=== PATIENT | male | born 1950 | race Caucasian/White ===

== ENCOUNTER 2016-07-25 15:50 | Emergency (ER) | payer OTHER, BC ==
[2016-07-25 16:01] VITALS: BP 148/76; PULSE 76; TEMP 97.9; BMI 33.7
--- NOTE | 2016-07-25 16:47 | PDOC ---
History of Present Illness - General Chief Complaint: Pain Stated Complaint: LT RIB PAIN Time Seen by Provider: 07/25/16 16:16 History Source: Patient - History of Present Illness Occurred: reports: other Pain Location: reports: chest Past History - Past Medical History Allergies/Adverse Reactions: Allergies Allergy/AdvReac Type Severity Reaction Status Date / Time No Known Allergies Allergy Verified 07/25/16 15:57 Home Medications: Ambulatory Orders Allopurinol [Zyloprim] 300 mg PO DAILY #0 tablet 06/14/11 Atorvastatin Ca [Lipitor] 10 mg PO HS #0 tablet 06/14/11 Aspirin [ASA -] 81 mg PO DAILY 09/11/14 Levomefolate/B6/B12/Algal Oil [Metanx Capsule] 1 each PO BID 09/11/14 Lisinopril [Prinivil -] 2.5 mg PO DAILY 09/11/14 Gabapentin [Neurontin] 200 mg PO HS PRN #0 09/22/14 Januvia 50 mg PO BID 10/14/14 Lasix - 40 mg PO DAILY 11/25/14 Potassium 10 meq PO DAILY 11/25/14 CHF: Yes Diabetes: Yes HTN: Yes Hypercholesterolemia: Yes - Surgical History Appendectomy: Yes Orthopedic Surgery: Yes (lt knee) - Immunization History Immunization Up to Date: Yes - Psycho/Social/Smoking Cessation Hx Anxiety: No Suicidal Ideation: No Smoking Status: No Smoking History: Never smoked Have you smoked in the past 12 months: No Number of Cigarettes Smoked Daily: 0 Information on smoking cessation initiated: No 'Breaking Loose' booklet given: 09/12/14 Hx Alcohol Use: No Drug/Substance Use Hx: No Substance Use Type: None Hx Substance Use Treatment: No Review of Systems - Review of Systems Constitutional: No: Chills, Fever Respiratory: No: Cough, Shortness of Breath, Wheezing Cardiac (ROS): No: Lightheadedness, Palpitations ABD/GI: No: Blood Streaked Bowels, Nausea, Vomiting, Abdominal cramping, Tarry Stools *Physical Exam - Vital Signs Last Vital Signs Temp Pulse Resp BP Pulse Ox 97.9 F 76 18 148/76 100 07/25/16 15:58 07/25/16 15:58 07/25/16 15:58 07/25/16 15:58 07/25/16 15:58 - Physical Exam General Appearance: Yes: Appropriately Dressed. No: Apparent Distress HEENT: positive: Normal Voice Neck: positive: Supple Respiratory/Chest: positive: Lungs Clear, Normal Breath Sounds, Other (healing contusion to L lateral mid chest in MAL). negative: Chest Tender, Respiratory Distress Cardiovascular: positive: Regular Rate, S1, S2 Gastrointestinal/Abdominal: positive: Soft. negative: Tender Musculoskeletal: negative: CVA Tenderness Integumentary: positive: Dry, Warm Neurologic: positive: Fully Oriented, Alert, Normal Mood/Affect ED Treatment Course - RADIOLOGY Radiology Studies Ordered: Category Date Time Status RIBS BILATERAL [RAD] Stat Radiology 07/25/16 16:42 Ordered Medical Decision Making - Medical Decision Making 07/25/16 16:42 66 yo M, HTN, HLD, DM, here w/ persistent L chest pain s/p fall 2 and 1/2 weeks ago where he hit L chest against a metal railing. Did not go to the ED. Had bruise to site which has nearly completely resolved. States pain now absent during the days and feels it mostly at nights when he is laying down. No SOB, palpitations, diaphoresis, n/v, excessive belching, change in BM, n/v/f/c See exam L chest wall pain s/p injury >2 weeks ago Site non-tender w/ healing contusion, no crepitus/stepoffs Chest/lungs clear otherwise -Rib series r/o fx pending -Given timing of pain (at nights when supine), unable to r/o GI source, i.e gastritis/GERD. If XR neg for fx, will dc with trial of zantac and PMD f/u 07/25/16 18:14 No fx or other acute pathology on XR. Will dc/ w h2 antagonist trial and pmd f/u 07/25/16 18:26 *DC/Admit/Observation/Transfer Diagnosis at time of Disposition: Chest wall contusion Qualifiers: Encounter type: initial encounter Laterality: left Qualified Code(s): S20.212A - Contusion of left front wall of thorax, initial encounter - Discharge Dispostion Disposition: HOME Condition at time of disposition: Good - Patient Instructions Printed Discharge Instructions: Gastritis Additional Instructions: The cause of your pain is possibly due to your healing contusion. However given that pain is mostly at night, gastritis is a possibility. Take 150 mg zantac over the counter twice a day for the next week and see if your nightly symptoms resolve. It it does resolved, source of pain may be GI, i.e gastritis, etc Please follow up with your PMD
== END 2016-07-25 18:35 | disposition home or self-care (01) ==
LOC: JERFT 15:50
DX: S20.212A Contusion of left front wall of thorax, initial encounter (principal); W01.198A Fall on same level from slipping, tripping and stumbling with subsequent striking against other object, initial encounter; Y93.89 Activity, other specified; Y92.89 Other specified places as the place of occurrence of the external cause; Y99.8 Other external cause status; I10 Essential (primary) hypertension; I50.9 Heart failure, unspecified; E11.9 Type 2 diabetes mellitus without complications; Z79.84 Long term (current) use of oral hypoglycemic drugs; E03.9 Hypothyroidism, unspecified
CPT/HCPCS: 71111-TC; 99281-25

== ENCOUNTER 2017-01-17 19:22 | Emergency (ER) | payer OTHER, BC ==
--- NOTE | 2017-01-17 19:49 | PDOC ---
Rapid Medical Evaluation Chief Complaint: Wound Time Seen by Provider: 01/17/17 19:45 Medical Evaluation: Allergies Allergy/AdvReac Type Severity Reaction Status Date / Time No Known Allergies Allergy Verified 07/25/16 15:57 01/17/17 19:45 I have performed a brief in-person evaluation of this patient. The patient presents with a chief complaint of: Left Foot Ulcer Pertinent physical exam findings: Wound to plantar surface underneath left great toe. I have ordered the following: n/a The patient will proceed to the ED for further evaluation.
[2017-01-17 19:50] VITALS: BP 153/82; PULSE 85; TEMP 98; BMI 33.0
--- NOTE | 2017-01-17 20:28 | PDOC ---
History of Present Illness - General History Source: Patient, Family, Old Records Exam Limitations: No Limitations - History of Present Illness Initial Comments: 01/17/17 20:35 The patient is a 67 year old male, accompanied by , with a past medical history of hypertension (for which he takes aspirin), hyperlipidemia, gout, and diabetes, who presents complaining of left foot discomfort. The patient reports recent history of infected diabetic ulcer that required surgical debridement by Dr. Meng. The patient pain to left foot only complains of discomfort at the medial aspect of left great toe underneath the ball of the foot. The patient denies fever and chills. PMD: Dr. Raiza Loco <Trino Guerrier - Last Filed: 01/17/17 20:41> - General History Source: Patient <Edmundo Arndt - Last Filed: 01/17/17 20:48> - General Chief Complaint: Wound Stated Complaint: LT FOOT PAIN Time Seen by Provider: 01/17/17 19:45 Past History <Trino Guerrier - Last Filed: 01/17/17 20:41> - Past Medical History COPD: No CHF: Yes Diabetes: Yes HTN: Yes Hypercholesterolemia: Yes Other medical history: gout - Surgical History Appendectomy: Yes Orthopedic Surgery: Yes (lt knee) - Immunization History Immunization Up to Date: Yes - Suicide/Smoking/Psychosocial Hx Smoking Status: No Smoking History: Never smoked Have you smoked in the past 12 months: No Number of Cigarettes Smoked Daily: 0 'Breaking Loose' booklet given: 09/12/14 Hx Alcohol Use: No Drug/Substance Use Hx: No Substance Use Type: None Hx Substance Use Treatment: No <Edmundo Arndt - Last Filed: 01/17/17 20:48> - Past Medical History Allergies/Adverse Reactions: Allergies Allergy/AdvReac Type Severity Reaction Status Date / Time No Known Allergies Allergy Verified 01/17/17 19:50 Home Medications: Ambulatory Orders Allopurinol [Zyloprim] 300 mg PO DAILY #0 tablet 06/14/11 Atorvastatin Ca [Lipitor] 10 mg PO HS #0 tablet 06/14/11 Aspirin [ASA -] 81 mg PO DAILY 09/11/14 Levomefolate/B6/B12/Algal Oil [Metanx Capsule] 1 each PO BID 09/11/14 Lisinopril [Prinivil -] 2.5 mg PO DAILY 09/11/14 Gabapentin [Neurontin] 200 mg PO HS PRN #0 09/22/14 Januvia 50 mg PO BID 10/14/14 Lasix - 40 mg PO DAILY 11/25/14 Potassium 10 meq PO DAILY 11/25/14 Levofloxacin [Levaquin -] 500 mg PO DAILY #7 tablet 01/17/17 Review of Systems - Review of Systems Able to Perform ROS?: Yes Comments:: 01/17/17 20:39 CONSTITUTIONAL: Absent: fever, no chills, no fatigue EYES: Absent: visual changes ENT: Absent: ear pain, no sore throat CARDIOVASCULAR: Absent: chest pain, no palpitations RESPIRATORY: Absent: cough, no SOB GI: Absent: abdominal pain, no nausea, no vomiting, no constipation, no diarrhea GENITOURINARY: Absent: dysuria, no frequency, no hematuria MUSCULOSKELETAL: Present: Left great toe discomfort Absent: back pain, no arthralgia, no myalgia SKIN: Absent: rash <Trino Guerrier - Last Filed: 01/17/17 20:41> *Physical Exam - Vital Signs Last Vital Signs Temp Pulse Resp BP Pulse Ox 98 F 85 18 153/82 98 01/17/17 19:44 01/17/17 19:44 01/17/17 19:44 01/17/17 19:44 01/17/17 19:44 - Physical Exam Comments: 01/17/17 20:39 GENERAL: Well-appearing, well-nourished. No apparent distress. HEENT: Normocephalic, atraumatic. PERRL, EOM intact. CARDIOVASCULAR: Normal S1, S2. Regular rate and rhythm. PULMONARY: Clear to auscultation bilaterally. ABDOMEN: Soft, non-distended, non-tender. EXTREMITIES: (+) Left great toe has small blister that is non-tender, no erythema, no pain or tenderness to ball of foot, only a small quarter like callous appearing lesion, no calf tenderness Normal ROM in all four extremities. No gross deformities. SKIN: Warm, dry. No rash NEUROLOGICAL: No focal neurological deficits. <Trino Guerrier - Last Filed: 01/17/17 20:41> - Vital Signs Last Vital Signs Temp Pulse Resp BP Pulse Ox 98 F 85 18 153/82 98 01/17/17 19:44 01/17/17 19:44 01/17/17 19:44 01/17/17 19:44 01/17/17 19:44 <Edmundo Arndt - Last Filed: 01/17/17 20:48> Medical Decision Making - Medical Decision Making 01/17/17 20:43 Dr. Arndt: The scribe's documentation has been prepared under my direction and personally reviewed by me in its entirery. I confirm that the note above accurately reflects all work, treatment, procedures, and medical decision making performed by me. patient with history of left toe, foot ulcer. Concerned that he foot, toe was infected. No sign of infection at this time. No fever or pain/tenderness to foot toe or calf. Pt will be started on Levaquin preventatively. Advised to follow up with Dr. Meng if any problems <Edmundo Arndt - Last Filed: 01/17/17 20:48> *DC/Admit/Observation/Transfer - Attestations Scribe Attestion: 01/17/17 20:39 Documentation prepared by Trino Guerrier, acting as medical library assistant for Edmundo Arndt DO. <Trino Guerrier - Last Filed: 01/17/17 20:41> - Discharge Dispostion Admit: No <Edmundo Arndt - Last Filed: 01/17/17 20:48> Diagnosis at time of Disposition: Toe pain, left Diabetic foot ulcer Qualifiers: Diabetes mellitus type: due to underlying condition Laterality: left - Discharge Dispostion Disposition: HOME Condition at time of disposition: Stable - Prescriptions Prescriptions: Levofloxacin [Levaquin -] 500 mg PO DAILY #7 tablet - Referrals Referrals: Raiza Loco MD [Primary Care Provider] - Glenn Meng MD [Staff Physician] - - Patient Instructions Printed Discharge Instructions: DI for Diabetic Foot Ulcer - Post Discharge Activity
[2017-01-17] MEDS ORDERED: LEVOFLOXACIN 500 MG TABLET (FP) PO ONE (20:31)
[2017-01-17] MEDS ORDERED: LEVOFLOXACIN 500 MG TABLET (FP) ONE (21:12)
== END 2017-01-17 21:51 | disposition home or self-care (01) ==
LOC: JER 19:22
DX: E11.621 Type 2 diabetes mellitus with foot ulcer (principal); Z79.84 Long term (current) use of oral hypoglycemic drugs; I10 Essential (primary) hypertension; I50.9 Heart failure, unspecified; M10.9 Gout, unspecified
CPT/HCPCS: 99281-25

== ENCOUNTER 2017-01-23 17:50 | Emergency (ER) | payer OTHER, BC ==
[2017-01-23 17:57] VITALS: BP 145/84; PULSE 81; TEMP 98; BMI 33.0
--- NOTE | 2017-01-23 17:58 | PDOC ---
Rapid Medical Evaluation Medical Evaluation: Allergies Allergy/AdvReac Type Severity Reaction Status Date / Time No Known Allergies Allergy Verified 01/17/17 19:50 01/23/17 17:52 I have performed a brief in person evaluation of this patient. The patient presents with chief complaint of : left foot diabetic ulcer , states it "looks worse" Pertinent PE findings: left plantar surface with ulcer , no drainage at present approximately 2cm x2cm I have ordered the following: nothing The patient will proceed to the ER for further evaluation.
--- NOTE | 2017-01-23 19:14 | PDOC ---
History of Present Illness - General Chief Complaint: Wound Stated Complaint: LT LEG PAIN Time Seen by Provider: 01/23/17 17:52 - History of Present Illness Initial Comments: 01/23/17 19:17 67-year-old male with a history of NIDDM presents to the emergency department for a wound check to the left plantar surface of the first metatarsal head. Patient states he had a foot ulceration which was treated with Levaquin and wasn 't sure if it looks worse today or not. Patient states he has has an appointment with his vascular surgeon at 11:30 AM tomorrow to examine his foot. Patient denies fever, chills, nausea/vomiting, chest pain, shortness of breath, abdominal pains, extremity numbness or tingling sensation. Past History - Past Medical History Allergies/Adverse Reactions: Allergies Allergy/AdvReac Type Severity Reaction Status Date / Time No Known Allergies Allergy Verified 01/23/17 17:57 Home Medications: Ambulatory Orders Allopurinol [Zyloprim] 300 mg PO DAILY #0 tablet 06/14/11 Atorvastatin Ca [Lipitor] 10 mg PO HS #0 tablet 06/14/11 Aspirin [ASA -] 81 mg PO DAILY 09/11/14 Levomefolate/B6/B12/Algal Oil [Metanx Capsule] 1 each PO BID 09/11/14 Lisinopril [Prinivil -] 2.5 mg PO DAILY 09/11/14 Gabapentin [Neurontin] 200 mg PO HS PRN #0 09/22/14 Januvia 50 mg PO BID 10/14/14 Lasix - 40 mg PO DAILY 11/25/14 Potassium 20 meq PO DAILY 11/25/14 Levofloxacin [Levaquin -] 500 mg PO DAILY #7 tablet 01/17/17 Spironolactone 25 mg PO ASDIR 01/23/17 COPD: No CHF: Yes DVT: No Diabetes: Yes HTN: Yes Hypercholesterolemia: Yes - Surgical History Appendectomy: Yes Orthopedic Surgery: Yes (lt knee) - Immunization History Immunization Up to Date: Yes - Suicide/Smoking/Psychosocial Hx Smoking Status: No Smoking History: Never smoked Have you smoked in the past 12 months: No Number of Cigarettes Smoked Daily: 0 Information on smoking cessation initiated: No 'Breaking Loose' booklet given: 09/12/14 Hx Alcohol Use: No Drug/Substance Use Hx: No Substance Use Type: None Hx Substance Use Treatment: No Review of Systems - Review of Systems Able to Perform ROS?: Yes Comments:: 01/23/17 19:15 CONSTITUTIONAL: Absent: fever, chills, diaphoresis, generalized weakness, malaise, loss of appetite HEENT: Absent: rhinorrhea, nasal congestion, throat pain, throat swelling, difficulty swallowing, mouth swelling, ear pain, eye pain, visual Changes CARDIOVASCULAR: Absent: chest pain, loss of consciousness, palpitations, irregular heart rate, peripheral edema RESPIRATORY: Absent: cough, shortness of breath, dyspnea with exertion, orthopnea, wheezing, stridor, hemoptysis GASTROINTESTINAL: Absent: abdominal pain, abdominal distension, nausea, vomiting, diarrhea, constipation, melena, hematochezia MUSCULOSKELETAL: Absent: myalgia, arthralgia, joint swelling SKIN: Absent: rash, itching, pallor Is the patient limited Portuguese proficient: No *Physical Exam - Vital Signs Last Vital Signs Temp Pulse Resp BP Pulse Ox 98 F 81 18 145/84 97 01/23/17 17:56 01/23/17 17:56 01/23/17 17:56 01/23/17 17:56 01/23/17 17:56 - Physical Exam Comments: 01/23/17 19:15 GENERAL: Well developed, well nourished. Awake and alert. No acute distress. CARDIOVASCULAR: Regular rate and rhythm. No murmurs, rubs, or gallops. Distal pulses are 2+ and symmetric. PULMONARY: No evidence of respiratory distress. Lungs clear to auscultation bilaterally. No wheezing, rales or rhonchi. ABDOMINAL: Soft. Non-tender. Non-distended. No rebound or guarding. No organomegaly. Normoactive bowel sounds. MUSCULOSKELETAL Normal range of motion at all joints. No bony deformities or tenderness. No CVA tenderness. EXTREMITIES: No cyanosis. No clubbing. No edema. No calf tenderness. SKIN: Warm and dry. Normal capillary refill. No rashes. No jaundice. left prox 1st mt plantar surface ~2x2cm healed ulceration neg lymphangitis neg drainage neg pain on palp left foot F.R>O.M. 2 point sensation intact cap refill <2sec 2+pedal pulse *DC/Admit/Observation/Transfer Diagnosis at time of Disposition: Visit for wound check - Discharge Dispostion Disposition: HOME Condition at time of disposition: Stable Admit: No - Referrals Referrals: Raiza Loco MD [Primary Care Provider] - Glenn Meng MD [Staff Physician] - - Patient Instructions Additional Instructions: Please follow up with your vascular surgeon/ DR. Meng tomorrow at 11:30AM SCHEDULED Return to the ER any concerns - Post Discharge Activity
== END 2017-01-23 19:18 | disposition home or self-care (01) ==
LOC: JERFT 17:50
DX: E11.621 Type 2 diabetes mellitus with foot ulcer (principal); I10 Essential (primary) hypertension; E78.00 Pure hypercholesterolemia, unspecified; I50.9 Heart failure, unspecified; Z79.82 Long term (current) use of aspirin
CPT/HCPCS: 99281-25

== ENCOUNTER 2017-05-16 14:35 | Observation (INO) | payer OTHER, BC ==
--- NOTE | 2017-05-16 14:41 | PDOC ---
Rapid Medical Evaluation Time Seen by Provider: 05/16/17 14:37 Medical Evaluation: Allergies Allergy/AdvReac Type Severity Reaction Status Date / Time No Known Allergies Allergy Verified 01/23/17 17:57 05/16/17 14:41 The patient presents with a chief complaint of: Abnormal heart rate, told he has aflutter from Dr. Gallo and was told to present to the ED for anticoagulation, admission and further work up. He believes it started approximately one week ago I have performed a brief in-person evaluation of this patient; Pertinent physical exam findings: ambulatory, in no respiratory distress; currently regular rate and rhythm I have ordered the following: CBC, CMP, Pt/INR, EKG, trop, cxr The patient will proceed to the ED for further evaluation. 05/16/17 14:[address] Dominguez for patient. He is expecting him Discharge Disposition - Referrals Referrals: Raiza Loco MD [Primary Care Provider] - - Patient Instructions - Post Discharge Activity
[2017-05-16 15:11] LABS: BASO % 1.4 % (0-2.0); EOS % 2.4 % (0-4.5); HEMATOCRIT 40.7 % (35.4-49); LYMPH % 17.5 % (8-40); MCH 31.6 pg (25.7-33.7); MCHC 34.3 g/dl (32.0-35.9); MEAN CELL VOLUME 92.1 fl (80-96); MEAN PLT VOLUME 8.4 fl (7.5-11.1); MONO % 5.3 % (3.8-10.2); NEUT % 73.4 % (42.8-82.8); PLATELET COUNT 222 K/MM3 (134-434); RBC 4.42 M/mm3 (4.00-5.60); RDW 14.9 % (11.9-15.9); WHITE BLOOD COUNT 8.9 K/mm3 (4.0-10.0)
[2017-05-16 15:25] LABS: INR 1.01 (0.82-1.09); PROTHROMBIN TIME (PATIENT) 11.4 SEC (9.98-11.88)
--- NOTE | 2017-05-16 15:29 | PDOC ---
History of Present Illness - General Chief Complaint: Palpitations Stated Complaint: ADMIT PER PCP A-FLUTTER Time Seen by Provider: 05/16/17 14:37 - History of Present Illness Initial Comments: 05/16/17 16:00 The patient is a 67 year old male with a history of HTN, HLD, DM, CHF who presents for admission for heart palpitations. The patient reports intermittent episodes of heart palpitations with a sensation of a rapid heart rate over the past few months with he most recent episode 1 week ago. He presented to his maternity nurse Dr. Regalado today who believes the patient is experiencing aflutter and would like the patient admitted for further work up and anticoagulation. The patient reports that he is asymptomatic on exam here in the ED and otherwise denies fevers, chills, SOB, chest pain, nausea, vomiting , abdominal pain, or changes with urination or bowel movements. Past History - Past Medical History Allergies/Adverse Reactions: Allergies Allergy/AdvReac Type Severity Reaction Status Date / Time No Known Allergies Allergy Verified 05/16/17 14:45 Home Medications: Ambulatory Orders Allopurinol [Zyloprim] 300 mg PO DAILY #0 tablet 06/14/11 Atorvastatin Ca [Lipitor] 10 mg PO HS #0 tablet 06/14/11 Lisinopril [Prinivil -] 5 mg PO DAILY 09/11/14 Gabapentin [Neurontin] 200 mg PO HS PRN #0 09/22/14 Januvia 50 mg PO BID 10/14/14 Lasix - 20 mg PO DAILY 11/25/14 Potassium 20 meq PO DAILY 11/25/14 Spironolactone 25 mg PO DAILY 01/23/17 Ascorbate Calcium [Vitamin C] 500 mg PO DAILY 05/16/17 Aspirin [ASA -] 81 mg PO DAILY 05/16/17 Multivitamin [One Daily] 1 each PO DAILY 05/16/17 Zinc Sulfate 220 mg PO DAILY 05/16/17 COPD: No CHF: Yes DVT: No Diabetes: Yes HTN: Yes Hypercholesterolemia: Yes - Surgical History Appendectomy: Yes Orthopedic Surgery: Yes (lt knee) - Immunization History Immunization Up to Date: Yes - Suicide/Smoking/Psychosocial Hx Smoking Status: No Smoking History: Never smoked Have you smoked in the past 12 months: No Number of Cigarettes Smoked Daily: 0 Information on smoking cessation initiated: No 'Breaking Loose' booklet given: 09/12/14 Hx Alcohol Use: No Drug/Substance Use Hx: No Substance Use Type: None Hx Substance Use Treatment: No Review of Systems - Review of Systems Comments:: 05/16/17 16:04 Constitutional: No fevers, chills, fatigue, malaise HEENT: No Rhinorrhea, nasal congestion, visual changes Cardiovascular: Palpitations. No chest pain, syncope, lightheadedness Respiratory: No Cough, SOB, Hemoptysis, Gastrointestinal: No Abdominal pain, Nausea, Vomiting, Constipation, Diarrhea, Melena Genitourinary: No Dysuria, Frequency, Urgency, Hesitancy, Hematuria, Flank pain Musculoskeletal: No Myalgia, arthralgia Skin: No rashes, itching, bruising, pallor Neurologic: No Headache, Dizziness, Numbness, Weakness, or Tingling Psychiatric: No Hallucinations. No SI or HI *Physical Exam - Vital Signs Last Vital Signs Temp Pulse Resp BP Pulse Ox 97.4 F L 82 19 143/76 99 05/16/17 14:42 05/16/17 14:42 05/16/17 14:42 05/16/17 14:42 05/16/17 14:42 - Physical Exam Comments: 05/16/17 16:04 General Appearance: Nourished. No Apparent Distress HEENT: EOMI, OREN. No Pharyngeal Erythema, Tonsillar Exudate, Tonsillar Erythema Neck: No Cervical Lymphadenopathy Respiratory/Chest: Lungs Clear, Normal Breath Sounds. No Crackles, Rales, Rhonchi, Wheezing Cardiovascular: Regular Rhythm, Regular Rate. No Murmur, Gallops, Rubs Gastrointestinal/Abdominal: Normal Bowel Sounds, Soft. No Guarding, Rebound, Tenderness Musculoskeletal: No CVA Tenderness Extremity: Normal Capillary Refill Integumentary: Normal Color, Dry, Warm Neurologic: Fully Oriented, Alert, Normal Mood/Affect, Normal Response, Heart Score/ECG Review #1 ECG reviewed & interpreted by me at: 16:05 (Left [place] Devation with a Prolonged QT interval) General ECG Interpretation: Sinus Rhythm, Normal Rate, Normal Intervals, No acute ischemic changes ED Treatment Course - LABORATORY CBC & Chemistry Diagram: 05/16/17 15:02 05/16/17 15:02 - ADDITIONAL ORDERS Additional order review: 05/16/17 15:02 RBC 4.42 MCV 92.1 MCHC 34.3 RDW 14.9 MPV 8.4 Neutrophils % 73.4 Lymphocytes % 17.5 D Monocytes % 5.3 Eosinophils % 2.4 Basophils % 1.4 Medical Decision Making - Medical Decision Making 05/16/17 16:05 The patient is a 67 year old male with a history of HTN, HLD, DM, CHF who presents for admission for heart palpitations. Given the patient's history, we will obtain a cbc, cmp, troponin, ekg, coags, and chest plain film to evaluate further. We discussed the case with Dr. Walsh who would like the patient placed on a heparin drip and placed on coreg 6.25mg BID and agrees with admission for further work up. We will start the patient on coreg and a heparin drip here in the ED and continue to monitor and reassess. 05/16/17 18:14 cbc, cmp, troponin are unremarkable. We discussed the case with the hospitalist team who accepted the patient for admission. *DC/Admit/Observation/Transfer Diagnosis at time of Disposition: Palpitations - Discharge Dispostion Condition at time of disposition: Stable Admit: Yes - Referrals Referrals: Raiza Loco MD [Primary Care Provider] - - Patient Instructions - Post Discharge Activity
[2017-05-16 15:46] LABS: ALBUMIN 4.3 g/dl (3.4-5.0); ALK PHOS 95 U/L (45-117); ANION GAP 13 (8-16); BILIRUBIN,TOTAL 0.8 mg/dL (0.2-1.0); BLOOD UREA NITROGEN 35 mg/dL (7-18); CALCIUM 9.1 mg/dL (8.5-10.1); CHLORIDE 101 mmol/L (98-107); CO2 25 mmol/L (21-32); CREATININE 1.5 mg/dL (0.7-1.3); GLUCOSE,RANDOM 137 mg/dL (74-106); POTASSIUM 3.4 mmol/L (3.5-5.1); SGOT/AST 14 U/L (15-37); SGPT/ALT 20 U/L (12-78); SODIUM 139 mmol/L (136-145); TOT PROT 7.4 g/dl (6.4-8.2)
[2017-05-16] MEDS ORDERED: HEPARIN NA (PORCINE) 5,000 UNITS/ML 1ML VIAL IVPUSH PRN ×2 (15:54)
[2017-05-16] MEDS ORDERED: HEPARIN - 25,000 UNIT in SODIUM CHLORIDE 495 ML IV SCH (16:00)
--- NOTE | 2017-05-16 16:25 | EKG ---
Test Reason : Blood Pressure : / mmHG Vent. Rate : 077 BPM Atrial Rate : 077 BPM P-R Int : 166 ms QRS Dur : 090 ms QT Int : 430 ms P-R-T Axes : 073 -30 003 degrees QTc Int : 486 ms SINUS RHYTHM WITH OCCASIONAL PREMATURE VENTRICULAR COMPLEXES LEFT AXIS DEVIATION NONSPECIFIC ST AND T WAVE ABNORMALITY PROLONGED QT ABNORMAL ECG WHEN COMPARED WITH ECG OF 29-JAN-2015 12:50, PREMATURE VENTRICULAR COMPLEXES ARE NOW PRESENT PREMATURE SUPRAVENTRICULAR COMPLEXES ARE NO LONGER PRESENT NONSPECIFIC T WAVE ABNORMALITY, WORSE IN INFERIOR LEADS Confirmed by Denilson Sylvester ([id number]) on 05/16/2017 4:25:19 PM Referred By: Confirmed By:Denilson Sylvester
--- NOTE | 2017-05-16 16:27 | PDOC ---
Attending Attestation - Resident Resident Name: Rigo Brandon - ED Attending Attestation I have performed the following: I have examined & evaluated the patient, The case was reviewed & discussed with the resident, I agree w/resident's findings & plan, Exceptions are as noted - HPI HPI: 05/16/17 16:24 67y/o HTN, DM with chronic foot wounds sent from cardiology after diagnosed with a flutter in the setting of intermittent palpitations/tachycardia. no cp, no complaints at this time. - Physicial Exam PE: 05/16/17 16:25 Vital signs normal, afebrile, heart rate regular Well-appearing, heart is regular without murmurs, occasional premature beat - Medical Decision Making 05/16/17 16:26 Patient seen and evaluated with the resident. I agree with the overall evaluation, assessment, and management with the following summary of visit: 67-year-old male diagnosed with atrial flutter as outpatient, asymptomatic at this time. Discussed with Dr. Walsh, plan is for admission for cardiac monitoring and anticoagulation EKG today is sinus with normal rate, single PVC noted admit Heart Score/ECG Review #1 ECG reviewed & interpreted by me at: 14:52 General ECG Interpretation: Sinus Rhythm (with single PVC noted), Normal Rate ( 77), Normal Intervals, No acute ischemic changes
--- NOTE | 2017-05-16 17:52 | HP ---
Admitting History and Physical - Primary Care Physician PCP: Raiza Loco - Admission Chief Complaint: sent from cardiology office History of Present Illness: This is a 67 year old male with pmhx of DM II, HTN, HLD, CHF diabetic foot ulcer s.p MRSA who presented to the ED after cardiology outpt eval of ECHO and EKG noting A flutter. Pt denies over palpitations, intermittently at night he will sob or find himself catching his breath. Per ED record he reported having intermitted sensations of rapid heart rate. Recently, seen by Dr. Meng noted an elevated HR towards the end of last year. Currently, pt is without palpitations, cp, sob, abd pain, walker, dizziness. 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 History Source: Patient Limitations to Obtaining History: No Limitations - Past Medical History Cardiovascular: Yes: CHF, HTN, Hyperlipdemia Endocrine: Yes: Diabetes Mellitus - Past Surgical History Additional Past Surgical History: Left toe surgery d/t MRSA - Smoking History Smoking history: Never smoked Have you smoked in the past 12 months: No Aproximately how many cigarettes per day: 0 - Alcohol/Substance Use Hx Alcohol Use: No History of Substance Use: reports: None - Social History Usual Living Arrangement: Yes: Alone ADL: Independent Occupation: pharmacist Home Medications - Allergies Allergies/Adverse Reactions: Allergies Allergy/AdvReac Type Severity Reaction Status Date / Time No Known Allergies Allergy Verified 05/16/17 14:45 - Home Medications Home Medications: Ambulatory Orders Allopurinol [Zyloprim] 300 mg PO DAILY #0 tablet 06/14/11 Atorvastatin Ca [Lipitor] 10 mg PO HS #0 tablet 06/14/11 Lisinopril [Prinivil -] 5 mg PO DAILY 09/11/14 Gabapentin [Neurontin] 200 mg PO HS PRN #0 09/22/14 Januvia 50 mg PO BID 10/14/14 Lasix - 20 mg PO DAILY 11/25/14 Potassium 20 meq PO DAILY 11/25/14 Spironolactone 25 mg PO DAILY 01/23/17 Ascorbate Calcium [Vitamin C] 500 mg PO DAILY 05/16/17 Aspirin [ASA -] 81 mg PO DAILY 05/16/17 Multivitamin [One Daily] 1 each PO DAILY 05/16/17 Zinc Sulfate 220 mg PO DAILY 05/16/17 Review of Systems - Review of Systems Constitutional: reports: No Symptoms Eyes: reports: No Symptoms HENT: reports: No Symptoms Neck: reports: No Symptoms Cardiovascular: reports: Palpitations, Shortness of Breath Respiratory: reports: SOB Gastrointestinal: reports: No Symptoms Genitourinary: reports: No Symptoms Musculoskeletal: reports: No Symptoms Integumentary: reports: No Symptoms Neurological: reports: No Symptoms Endocrine: reports: No Symptoms Hematology/Lymphatic: reports: No Symptoms Psychiatric: reports: No Symptoms Physical Examination Vital Signs: Vital Signs Temperature 97.4 F L 05/16/17 14:42 Pulse Rate 82 05/16/17 14:42 Respiratory Rate 19 05/16/17 14:42 Blood Pressure 143/76 05/16/17 14:42 O2 Sat by Pulse Oximetry (%) 99 05/16/17 14:42 Constitutional: Yes: No Distress Eyes: Yes: Conjunctiva Clear HENT: Yes: Atraumatic Cardiovascular: Yes: Pulse Irregular, S1, S2 Respiratory: Yes: Regular, CTA Bilaterally Gastrointestinal: Yes: Normal Bowel Sounds, Soft Renal/: Yes: WNL Musculoskeletal: Yes: WNL Edema: Yes Edema: RLE: 1+ Peripheral Pulses WNL: Yes Wound/Incision: Yes: Dressing Dry and Intact, Other (L foot, pt reports is healing, he changes it everday) Neurological: Yes: Alert, Oriented, Cran Nerves II-XII Intact Labs: CBC, BMP 05/16/17 15:02 05/16/17 15:02 Imaging - Results Chest X-ray: Report Reviewed, Image Reviewed EKG: Report Reviewed, Image Reviewed Problem List - Problems (1) Atrial flutter Code(s): I48.92 - UNSPECIFIED ATRIAL FLUTTER (2) Palpitations Code(s): R00.2 - PALPITATIONS (3) Diabetes Code(s): E11.9 - TYPE 2 DIABETES MELLITUS WITHOUT COMPLICATIONS (4) Diabetic foot ulcer Code(s): E11.621 - TYPE 2 DIABETES MELLITUS WITH FOOT ULCER; L97.509 - NON- PRESSURE CHRONIC ULCER OTH PRT UNSP FOOT W UNSP SEVERITY Qualifiers: Diabetes mellitus type: due to underlying condition Laterality: left Assessment/Plan Assessment: 67 year old male with htn, dm II, hld, chf, admitted with new onset a flutter Plan: 1. New onset a flutter - Tele monitoring - Stop verapamil - Start coreg 6.25, ECHO shows degree of failure - Start eliquis 5mg BID - Check lipids, tsh, hgb a1c - Cardiology seeing 2. SUNNY on CKD - Cr baseline 1.3 - Hold Lasix, januvia, chlorthalidone - Give gentle fluids - BMP in AM 3. DM II - Hold po meds - start ISS, BGM ACHS 4. CHF - Not in exacerbation - Likely systolic failure - Hold diuretics pending renal recovery 5. HLD - Statin 6. Foot ulcer - hx of mrsa - Daily dressing changes 7. DVT - On AC Visit type - Emergency Visit Emergency Visit: Yes Care time: The patient presented to the Emergency Department on the above date and was hospitalized for further evaluation of their emergent condition. - New Patient This patient is new to me today: Yes Date on this admission: 05/16/17 - Critical Care Critical Care patient: No Hospitalist Screening - Colonoscopy Questionnaire Colonoscopy Questionnaire: Colonoscopy Questionnaire - Patient: 50 - 75 years old and never had a screening colonoscopy: No History of colon or rectal polyps, or CA: Unknown History of IBD, Crohn's disease or UC: Unknown History of abdominal radiation therapy as a child: Unknown - Relative: 1 with colon or rectal CA, or polyps at age 60 or younger: Unknown Colon or rectal CA diagnosed at age 45 or younger: Unknown Multiple relatives with colon or rectal CA: Unknown - Outcome: Screening Result: Negative Screen
[2017-05-16] MEDS ORDERED: POTASSIUM CHLORIDE ORAL LIQUID 20 MEQ/15 ML PO ONE (18:04)
[2017-05-16] MEDS ORDERED: SODIUM CHLORIDE 1,000 ML IV SCH (18:15)
[2017-05-16] MEDS ORDERED: POTASSIUM CHLORIDE TABS 20 MEQ TABLET.ER (FP) PO ONE (18:40)
[2017-05-16] MEDS ORDERED: HEMOQUE TEST 1 EACH EACH ONE (20:22)
[2017-05-16] MEDS: APIXABAN 5 MG TABLET PO SCH ×2 (20:29→22:07)
[2017-05-16] MEDS ORDERED: INSULIN (NOVOLOG) ASPART 100 UNITS/ML 10ML VIAL ONE (21:36)
[2017-05-16] MEDS: INSULIN SLIDING SCALE (NOVOLOG) 1 VIAL SQ SCH (21:47)
[2017-05-16] MEDS ORDERED: ATORVASTATIN CA 10 MG TABLET (FP) PO SCH (22:00)
[2017-05-16] MEDS: CARVEDILOL 6.25 MG TABLET (FP) PO SCH (22:08)
[2017-05-17] MEDS: INSULIN SLIDING SCALE (NOVOLOG) 1 VIAL SQ SCH ×2 (06:21→11:51)
[2017-05-17 07:03] VITALS: TEMP 98.3
[2017-05-17 07:55] VITALS: PULSE 70
[2017-05-17 07:57] LABS: HEMATOCRIT 35.9 % (35.4-49); HEMOGLOBIN 12.3 GM/dL (11.7-16.9); MCH 31.4 pg (25.7-33.7); MCHC 34.3 g/dl (32.0-35.9); MEAN CELL VOLUME 91.6 fl (80-96); MEAN PLT VOLUME 8.7 fl (7.5-11.1); PLATELET COUNT 201 K/MM3 (134-434); RBC 3.92 M/mm3 (4.00-5.60); RDW 15.3 % (11.9-15.9); WHITE BLOOD COUNT 9.3 K/mm3 (4.0-10.0)
[2017-05-17 08:15] LABS: CHLORIDE 104 mmol/L (98-107); POTASSIUM 3.7 mmol/L (3.5-5.1); SODIUM 139 mmol/L (136-145)
[2017-05-17 08:26] LABS: ANION GAP 12 (8-16); BLOOD UREA NITROGEN 33 mg/dL (7-18); CALCIUM 8.6 mg/dL (8.5-10.1); CO2 23 mmol/L (21-32); CREATININE 1.2 mg/dL (0.7-1.3); GLUCOSE,RANDOM 125 mg/dL (74-106); MAGNESIUM 2.4 mg/dL (1.8-2.4); PHOSPHOROUS 3.3 mg/dL (2.5-4.9)
[2017-05-17 09:09] LABS: CHOLESTEROL 186 mg/dL (50-200); HDL CHOLESTEROL 35 mg/dL (40-60); LDL CHOLESTEROL (ONLY SJRH) 128 mg/dL (5-100); TRIGLYCERIDES 190 mg/dL (35-160)
[2017-05-17] MEDS ORDERED: ZINC SULFATE 220 MG CAPSULE (FP) PO SCH (10:00)
[2017-05-17] MEDS ORDERED: MULTIVITAMINS (DAILY MVI) TABLET (FP) PO SCH (10:00)
[2017-05-17] MEDS ORDERED: SPIRONOLACTONE 25 MG TABLET (FP) PO SCH (10:00)
[2017-05-17] MEDS: CARVEDILOL 6.25 MG TABLET (FP) PO SCH (11:25)
[2017-05-17] MEDS: APIXABAN 5 MG TABLET PO SCH (11:25)
--- NOTE | 2017-05-17 11:33 | PN ---
Progress Note, Physician Chief Complaint: Pt OOB in chair; did not sleep last night (uncomfortable bed, and noisy in ER) .. No palpitations, chest pain, or SOB; no PND. 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 Gallo and was told to present to the ED for anticoagulation, admission and further work up. He believes it started approximately one week ago I have performed a brief in-person evaluation of this patient; Pertinent physical exam findings: ambulatory, in no respiratory distress; currently regular rate and rhythm I have ordered the following: CBC, CMP, Pt/INR, EKG, trop, cxr The patient will proceed to the ED for further evaluation. 05/16/17 14:46 Collar Separator: Dr. Walsh PMD: Dr. Raiza Loco - Current Medication List Current Medications: Active Medications Apixaban (Eliquis -) 5 mg PO BID [facility] Last Admin: 05/17/17 11:25 Dose: 5 mg Atorvastatin Calcium (Lipitor -) 10 mg PO HS [facility] Last Admin: 05/16/17 21:47 Dose: 10 mg Carvedilol (Coreg -) 6.25 mg PO BID [facility] Last Admin: 05/17/17 11:25 Dose: 6.25 mg Sodium Chloride (Normal Saline -) 1,000 mls @ 50 mls/hr IV ASDIR [facility] Stop: 05/17/17 18:01 Last Admin: 05/16/17 18:03 Dose: 50 mls/hr Insulin Aspart (Novolog Vial Sliding Scale -) 0 vial SQ ACHS [facility] PRN Reason: Protocol Last Admin: 05/17/17 06:21 Dose: Not Given Multivitamins/Minerals/Vitamin C (Tab-A-Vit -) 1 tab PO DAILY [facility] Last Admin: 05/17/17 11:25 Dose: 1 tab Spironolactone (Aldactone -) 25 mg PO DAILY [facility] Last Admin: 05/17/17 11:25 Dose: 25 mg Zinc Sulfate (Orazinc -) 220 mg PO DAILY [facility] Last Admin: 05/17/17 11:25 Dose: 220 mg - Objective Vital Signs: Vital Signs Temperature 98.3 F 05/17/17 06:00 Pulse Rate 70 05/17/17 07:55 Respiratory Rate 18 05/17/17 07:55 Blood Pressure 119/73 05/17/17 07:55 O2 Sat by Pulse Oximetry (%) 98 05/17/17 07:55 Labs: CBC, BMP 05/17/17 06:30 05/17/17 06:30 INR, PTT INR 1.01 (0.82-1.09) 05/16/17 15:02 Problem List - Problems (1) Atrial flutter Assessment/Plan: Now in sinus rhythm. Verapamil stopped (mildly reduced LVEF on ECHO yesterday). Started carvedilol 6.25 mg bid. Diuretics (chlorthalidone and furosemide) d/sharron (elevated BUN/Cr improving overnight) Code(s): I48.92 - UNSPECIFIED ATRIAL FLUTTER (2) Palpitations Code(s): R00.2 - PALPITATIONS (3) Diabetes Code(s): E11.9 - TYPE 2 DIABETES MELLITUS WITHOUT COMPLICATIONS (4) Foot swelling Code(s): M79.89 - OTHER SPECIFIED SOFT TISSUE DISORDERS (5) Osteomyelitis due to type 2 diabetes mellitus Code(s): E11.69 - TYPE 2 DIABETES MELLITUS WITH OTHER SPECIFIED COMPLICATION; M86.9 - OSTEOMYELITIS, UNSPECIFIED (6) Toe pain, left Code(s): M79.675 - PAIN IN LEFT TOE(S) (7) Visit for wound check Code(s): Z51.89 - ENCOUNTER FOR OTHER SPECIFIED AFTERCARE (8) Peripheral arterial disease Assessment/Plan: f/u vascular studies as outpt. Code(s): I73.9 - PERIPHERAL VASCULAR DISEASE, UNSPECIFIED (9) [place] cardiac risk >20% in next 10 years Assessment/Plan: F/u coronary artery evaluation as outpatient. Code(s): Z91.89 - OTH PERSONAL RISK FACTORS, NOT ELSEWHERE CLASSIFIED
--- NOTE | 2017-05-17 11:41 | DS ---
Physical Exam: SUBJECTIVE: Patient seen and examined OBJECTIVE: Vital Signs Period Temp Pulse Resp BP Sys/Muñiz Pulse Ox Last 24 Hr 97.4 F-98.4 F 67-84 16-19 114-143/67-79 98-99 PHYSICAL EXAM GENERAL: The patient is awake, alert, and fully oriented, in no acute distress. HEAD: Normal with no signs of trauma. EYES: PERRL, extraocular movements intact, sclera anicteric, conjunctiva clear. ENT: Ears normal, nares patent, oropharynx clear without exudates, moist mucous membranes. NECK: Trachea midline, full range of motion, supple. LUNGS: Breath sounds equal, clear to auscultation bilaterally, no wheezes, no crackles, no accessory muscle use. HEART: Regular rate and rhythm, S1, S2 without murmur, rub or gallop. ABDOMEN: Soft, nontender, nondistended, normoactive bowel sounds, no guarding, no rebound, no hepatosplenomegaly, no masses. EXTREMITIES: 2+ pulses, warm, well-perfused, no edema. NEUROLOGICAL: Cranial nerves II through XII grossly intact. Normal speech, gait not observed. PSYCH: Normal mood, normal affect. SKIN: Warm, dry, normal turgor, no rashes or lesions noted. LABS Laboratory Results - last 24 hr 05/16/17 05/16/17 05/16/17 14:50 15:02 15:02 WBC 8.9 RBC 4.42 Hgb 14.0 Hct 40.7 MCV 92.1 MCH 31.6 MCHC 34.3 RDW 14.9 Plt Count 222 MPV 8.4 Neutrophils % 73.4 Lymphocytes % 17.5 D Monocytes % 5.3 Eosinophils % 2.4 Basophils % 1.4 PT with INR 11.40 INR 1.01 Sodium Potassium Chloride Carbon Dioxide Anion Gap BUN Creatinine Creat Clearance w eGFR POC Glucometer Random Glucose Calcium Phosphorus Magnesium Total Bilirubin AST ALT Alkaline Phosphatase Creatine Kinase 86 Troponin I < 0.02 Total Protein Albumin Triglycerides Cholesterol Total LDL Cholesterol HDL Cholesterol TSH 05/16/17 05/16/17 05/17/17 15:02 20:27 06:05 WBC RBC Hgb Hct MCV MCH MCHC RDW Plt Count MPV Neutrophils % Lymphocytes % Monocytes % Eosinophils % Basophils % PT with INR INR Sodium 139 Potassium 3.4 L Chloride 101 Carbon Dioxide 25 Anion Gap 13 BUN 35 H Creatinine 1.5 H Creat Clearance w eGFR 46.40 POC Glucometer [id number] 128 Random Glucose 137 H D Calcium 9.1 Phosphorus Magnesium Total Bilirubin 0.8 AST 14 L D ALT 20 D Alkaline Phosphatase 95 Creatine Kinase Troponin I Total Protein 7.4 Albumin 4.3 Triglycerides Cholesterol Total LDL Cholesterol HDL Cholesterol TSH 05/17/17 05/17/17 05/17/17 06:30 06:30 06:30 WBC 9.3 RBC 3.92 L Hgb 12.3 D Hct 35.9 MCV 91.6 MCH 31.4 MCHC 34.3 RDW 15.3 Plt Count 201 MPV 8.7 Neutrophils % Lymphocytes % Monocytes % Eosinophils % Basophils % PT with INR INR Sodium 139 Potassium 3.7 Chloride 104 Carbon Dioxide 23 Anion Gap 12 BUN 33 H Creatinine 1.2 Creat Clearance w eGFR POC Glucometer Random Glucose 125 H Calcium 8.6 Phosphorus 3.3 Magnesium 2.4 Total Bilirubin AST ALT Alkaline Phosphatase Creatine Kinase Troponin I Total Protein Albumin Triglycerides 190 H Cancelled Cholesterol 186 Cancelled Total LDL Cholesterol 128 H Cancelled HDL Cholesterol 35 L D Cancelled TSH 1.45 D Cancelled HOSPITAL COURSE: Date of Admission:05/16/17 Date of Discharge: 05/17/17 Discharge Summary Reason For Visit: PALPITATIONS Current Active Problems Atrial flutter (Acute) Palpitations (Acute) Condition: Stable - Instructions Diet, Activity, Other Instructions: Please return to the ED for any new, persistent, or worsening symptoms. Follow up with your PCP in 1 week Take new and regularly scheduled meds as directed on discharge med list Follow up with cardiology in 2 weeks Take lasix 20mg as needed for lower leg swelling, not scheduled, if you find yourself using it daily call Dr. Walsh and see him in the office Referrals: Raiza Loco MD [Primary Care Provider] - Garett Walsh MD [Staff Physician] - Disposition: HOME - Home Medications Comprehensive Discharge Medication List: Ambulatory Orders Allopurinol [Zyloprim] 300 mg PO DAILY #0 tablet 06/14/11 Lisinopril [Prinivil -] 5 mg PO DAILY 09/11/14 Gabapentin [Neurontin] 200 mg PO HS PRN #0 09/22/14 Januvia 50 mg PO BID 10/14/14 Ascorbate Calcium [Vitamin C] 500 mg PO DAILY 05/16/17 Multivitamin [One Daily] 1 each PO DAILY 05/16/17 Zinc Sulfate 220 mg PO DAILY 05/16/17 Apixaban [Eliquis -] 5 mg PO BID #60 tablet 05/17/17 Atorvastatin Ca [Lipitor] 40 mg PO HS #30 tablet 05/17/17 Carvedilol [Coreg -] 6.25 mg PO BID #60 tablet 05/17/17 Furosemide [Lasix -] 20 mg PO DAILY PRN #30 tablet 05/17/17 Problem List - Problems (1) Atrial flutter Code(s): I48.92 - UNSPECIFIED ATRIAL FLUTTER (2) Palpitations Code(s): R00.2 - PALPITATIONS (3) Diabetes Code(s): E11.9 - TYPE 2 DIABETES MELLITUS WITHOUT COMPLICATIONS (4) Diabetic foot ulcer Code(s): E11.621 - TYPE 2 DIABETES MELLITUS WITH FOOT ULCER; L97.509 - NON- PRESSURE CHRONIC ULCER OTH PRT UNSP FOOT W UNSP SEVERITY Qualifiers: Diabetes mellitus type: due to underlying condition Laterality: left
--- NOTE | 2017-05-17 11:55 | EKG ---
Test Reason : Blood Pressure : / mmHG Vent. Rate : 075 BPM Atrial Rate : 075 BPM P-R Int : 170 ms QRS Dur : 100 ms QT Int : 466 ms P-R-T Axes : 077 -28 -34 degrees QTc Int : 520 ms NORMAL SINUS RHYTHM NONSPECIFIC ST AND T WAVE ABNORMALITY PROLONGED QT ABNORMAL ECG WHEN COMPARED WITH ECG OF 16-MAY-2017 14:52, PREMATURE VENTRICULAR COMPLEXES ARE NO LONGER PRESENT NONSPECIFIC T WAVE ABNORMALITY NOW EVIDENT IN ANTEROLATERAL LEADS Confirmed by JAE GARCIA MD ([id number]) on 05/17/2017 11:55:15 AM Referred By: ELIZABETH WERNER Confirmed By:JAE GARCIA MD
[2017-05-17 12:11] VITALS: BP 114/72
== END 2017-05-17 12:56 | disposition home or self-care (01) ==
LOC: JER 14:35 → JERBED 17:39
PROVIDERS: ADMIT Internal Medicine; ATTEND Nurse Practitioner Acute Care
PROC: 3E033GC Introduction of Other Therapeutic Substance into Peripheral Vein, Percutaneous Approach (ICD-10-PCS; principal; 2017-05-16)
PROC: 3E0337Z Introduction of Electrolytic and Water Balance Substance into Peripheral Vein, Percutaneous Approach (ICD-10-PCS; 2017-05-16)
DX: I48.92 Unspecified atrial flutter (principal); R00.2 Palpitations; I10 Essential (primary) hypertension; E78.5 Hyperlipidemia, unspecified; I50.9 Heart failure, unspecified; I73.9 Peripheral vascular disease, unspecified; E11.69 Type 2 diabetes mellitus with other specified complication; E11.621 Type 2 diabetes mellitus with foot ulcer; L97.509 Non-pressure chronic ulcer of other part of unspecified foot with unspecified severity; M79.89 Other specified soft tissue disorders; M86.9 Osteomyelitis, unspecified; M79.675 Pain in left toe(s); Z91.89 Other specified personal risk factors, not elsewhere classified; Z79.82 Long term (current) use of aspirin
CPT/HCPCS: 36415; 71046-TC-FY; 80048; 80053; 80061; 82550; 82962; 83036; 83721; 83735; 84100; 84443; 84484; 85025; 85027; 85610; 93005; 93010; 96360; 96361; 99285-25; G0378; J7030

== ENCOUNTER 2017-11-19 23:21 | Emergency (ER) | payer OTHER, BC ==
[2017-11-19 23:44] VITALS: BP 151/79; PULSE 87; TEMP 98.2; BMI 33.0
--- NOTE | 2017-11-20 00:36 | PDOC ---
History of Present Illness - General History Source: Patient Exam Limitations: No Limitations - History of Present Illness Initial Comments: 11/20/17 00:47 The patient is a 67 year old male with a past medical history of A-flutter, type 2 diabetes, hypertension, osteomyelitis, chronic foot wounds, and pedal edema (on demadex) who presents to the emergency department for evaluation of left lower extremity edema. The patient reports visiting the emergency department for further evaluation after noticing swelling on his left leg and left foot. Patient sees Dr. Meng at the wound care clinic and has an appointment next week. The patient denies chest pain, shortness of breath, cough, headache, and dizziness. Denies fevers, chills, nausea, vomiting, and any bowel/urinary symptoms. Allergies: NKDA Social History: No reported alcohol, cigarette, or drug use. PCP: Dr. Raiza Loco <Kaylee Hylton - Last Filed: 11/20/17 00:47> <Jeni Lyn - Last Filed: 11/20/17 01:47> - General Chief Complaint: Edema Stated Complaint: SWOLLEN LEFT FOOT Time Seen by Provider: 11/20/17 00:24 Past History <Kaylee Hylton - Last Filed: 11/20/17 00:47> - Past Medical History COPD: No CHF: Yes DVT: No Diabetes: Yes HTN: Yes Hypercholesterolemia: Yes - Surgical History Appendectomy: Yes Orthopedic Surgery: Yes (lt knee) - Immunization History Immunization Up to Date: Yes - Suicide/Smoking/Psychosocial Hx Smoking Status: No Smoking History: Former smoker Have you smoked in the past 12 months: No Number of Cigarettes Smoked Daily: 0 If you are a former smoker, when did you quit?: 1979 Information on smoking cessation initiated: No 'Breaking Loose' booklet given: 09/12/14 Hx Alcohol Use: Yes Drug/Substance Use Hx: No Substance Use Type: None Hx Substance Use Treatment: No <Jeni Lyn - Last Filed: 11/20/17 01:47> - Past Medical History Allergies/Adverse Reactions: Allergies Allergy/AdvReac Type Severity Reaction Status Date / Time No Known Allergies Allergy Verified 05/16/17 14:45 Home Medications: Ambulatory Orders Allopurinol [Zyloprim] 300 mg PO DAILY #0 tablet 06/14/11 Lisinopril [Prinivil -] 5 mg PO DAILY 09/11/14 Gabapentin [Neurontin] 200 mg PO HS PRN #0 09/22/14 Januvia 50 mg PO BID 10/14/14 Ascorbate Calcium [Vitamin C] 500 mg PO DAILY 05/16/17 Multivitamin [One Daily] 1 each PO DAILY 05/16/17 Zinc Sulfate 220 mg PO DAILY 05/16/17 Apixaban [Eliquis -] 5 mg PO BID #60 tablet 05/17/17 Atorvastatin Ca [Lipitor] 40 mg PO HS #30 tablet 05/17/17 Carvedilol [Coreg -] 12.5 mg PO BID 11/20/17 Review of Systems - Review of Systems Able to Perform ROS?: Yes Comments:: CONSTITUTIONAL: Absent: fever, chills, diaphoresis, generalized weakness, malaise, loss of appetite HEENT: Absent: rhinorrhea, nasal congestion, throat pain, throat swelling, difficulty swallowing, mouth swelling, ear pain, eye pain, visual Changes CARDIOVASCULAR: Absent: chest pain, syncope, palpitations, irregular heart rate, lightheadedness , peripheral edema RESPIRATORY: Absent: cough, shortness of breath, dyspnea with exertion, orthopnea, wheezing, stridor, hemoptysis GASTROINTESTINAL: Absent: abdominal pain, abdominal distension, nausea, vomiting, diarrhea, constipation, melena, hematochezia GENITOURINARY: Absent: dysuria, frequency, urgency, hesitancy, hematuria, flank pain, genital pain MUSCULOSKELETAL: (+)Left foot pain. (+)Left leg pain. (+)Left extremity swelling. Absent: myalgia, arthralgia, joint swelling SKIN: Absent: rash, itching, pallor HEMATOLOGIC/IMMUNOLOGIC: Absent: easy bleeding, easy bruising, lymphadenopathy, frequent infections ENDOCRINE: Absent: unexplained weight gain, unexplained weight loss, heat intolerance, cold intolerance NEUROLOGIC: Absent: headache, focal weakness or paresthesias, dizziness, unsteady gait, seizure, mental status changes, bladder or bowel incontinence PSYCHIATRIC: Absent: anxiety, depression, suicidal or homicidal ideation, hallucinations. <Kaylee Hylton - Last Filed: 11/20/17 00:47> *Physical Exam - Vital Signs Last Vital Signs Temp Pulse Resp BP Pulse Ox 98.2 F 87 20 151/79 100 11/19/17 23:40 11/19/17 23:40 11/19/17 23:40 11/19/17 23:40 11/19/17 23:40 - Physical Exam Comments: GENERAL: Well developed, well nourished. Awake and alert. No acute distress. HEENT: Normocephalic, atraumatic. PERRLA, EOMI. No conjunctival pallor. Sclera are non- icteric. Moist mucous membranes. Oropharynx is clear. NECK: Supple. Full ROM. No JVD. Carotid pulses 2+ and symmetric, without bruits. No thyromegaly. No lymphadenopathy. CARDIOVASCULAR: Regular rate and rhythm. No murmurs, rubs, or gallops. Distal pulses are 2+ and symmetric. PULMONARY: No evidence of respiratory distress. Lungs clear to auscultation bilaterally. No wheezing, rales or rhonchi. ABDOMINAL: Soft. Non-tender. Non-distended. No rebound or guarding. No organomegaly. Normoactive bowel sounds. MUSCULOSKELETAL Normal range of motion at all joints. No bony deformities or tenderness. No CVA tenderness. EXTREMITIES: (+)Callous on the ventral surface of the left big toe, no open ulcer at this time. No purulence or erythema around the area. (+)lateral surface of left tib fib, 2cm old healed laceration. No erythema or purulence. SKIN: Warm and dry. Normal capillary refill. No rashes. No jaundice. NEUROLOGICAL: Alert, awake, appropriate. Cranial nerves 2-12 intact. No deficits to light touch and temperature in face, upper extremities and lower extremities. No motor deficits in the in face, upper extremities and lower extremities. Normoreflexic in the upper and lower extremities. Normal speech. Toes are down- going bilaterally. Gait is normal without ataxia. PSYCHIATRIC: Cooperative. Good eye contact. Appropriate mood and affect. <Kaylee Hylton - Last Filed: 11/20/17 00:47> - Vital Signs Last Vital Signs Temp Pulse Resp BP Pulse Ox 98.2 F 87 20 151/79 100 11/19/17 23:40 11/19/17 23:40 11/19/17 23:40 11/19/17 23:40 11/19/17 23:40 <Jeni Lyn - Last Filed: 11/20/17 01:47> ED Treatment Course - LABORATORY CBC & Chemistry Diagram: 11/20/17 00:50 11/20/17 00:50 - RADIOLOGY Radiology Studies Ordered: Category Date Time Status DUPLEX VASCUL US-1 LEG [US] Stat Ultrasound 11/20/17 00:33 Ordered <Jeni Lyn - Last Filed: 11/20/17 01:47> Medical Decision Making - Medical Decision Making 11/20/17 01:42 no evidence of cellulitis no fever normal cbc chemistries chronic renal insuffiency cr=1.5 Dupplex doppler no dvt imp LE edema plan followup with Dr Meng at wound care <Jeni Lyn - Last Filed: 11/20/17 01:47> *DC/Admit/Observation/Transfer - Attestations Scribe Attestion: Documentation prepared by Kaylee Hylton, acting as medical specialist for Jeni Lyn MD. <Kaylee Hylton - Last Filed: 11/20/17 00:47> <Jeni Lyn - Last Filed: 11/20/17 01:47> Diagnosis at time of Disposition: Edema extremities Diabetes Qualifiers: Diabetes mellitus type: type 2 Diabetes mellitus exterminator termite insulin use: without skilled nursing use Diabetes mellitus complication status: with hyperglycemia Qualified Code(s): E11.65 - Type 2 diabetes mellitus with hyperglycemia - Discharge Dispostion Disposition: HOME Condition at time of disposition: Stable - Referrals Referrals: Raiza Loco MD [Primary Care Provider] - - Patient Instructions Printed Discharge Instructions: DI for Peripheral Edema -- Bilateral Additional Instructions: please followup with your wound care physician - Post Discharge Activity
[2017-11-20 01:04] LABS: BASO % 0.5 % (0-2.0); EOS % 2.6 % (0-4.5); HEMATOCRIT 35.9 % (35.4-49); HEMOGLOBIN 12.6 GM/dL (11.7-16.9); LYMPH % 10.5 % (8-40); MCHC 35.1 g/dl (32.0-35.9); MEAN CELL VOLUME 91.3 fl (80-96); MEAN PLT VOLUME 8.4 fl (7.5-11.1); MONO % 5.4 % (3.8-10.2); PLATELET COUNT 186 K/MM3 (134-434); RBC 3.94 M/mm3 (4.00-5.60); RDW 14.8 % (11.9-15.9); WHITE BLOOD COUNT 10.7 K/mm3 (4.0-10.0)
[2017-11-20 01:26] LABS: ALBUMIN 4.1 g/dl (3.4-5.0); ALK PHOS 100 U/L (45-117); ANION GAP 6 MMOL/L (8-16); BILIRUBIN,TOTAL 0.8 mg/dL (0.2-1); BLOOD UREA NITROGEN 37 mg/dL (7-18); CALCIUM 8.8 mg/dL (8.5-10.1); CHLORIDE 101 mmol/L (98-107); CO2 29 mmol/L (21-32); CREATININE 1.5 mg/dL (0.55-1.3); GLUCOSE,RANDOM 155 mg/dL (74-106); POTASSIUM 3.8 mmol/L (3.5-5.1); SGOT/AST 21 U/L (15-37); SGPT/ALT 28 U/L (13-61); SODIUM 137 mmol/L (136-145); TOT PROT 7.2 g/dl (6.4-8.2)
== END 2017-11-20 01:57 | disposition home or self-care (01) ==
LOC: JER 23:21
DX: R60.0 Localized edema (principal); E11.65 Type 2 diabetes mellitus with hyperglycemia; Z79.84 Long term (current) use of oral hypoglycemic drugs; I10 Essential (primary) hypertension; I50.9 Heart failure, unspecified; I48.92 Unspecified atrial flutter; Z79.01 Long term (current) use of anticoagulants; E78.00 Pure hypercholesterolemia, unspecified; Z87.39 Personal history of other diseases of the musculoskeletal system and connective tissue
CPT/HCPCS: 36415; 80053; 85025; 93971-TC; 99282-25

== ENCOUNTER 2018-01-05 20:31 | Emergency (ER) | payer OTHER, BC ==
[2018-01-05 21:05] VITALS: BP 139/71; PULSE 81; TEMP 98.2; BMI 33.0
--- NOTE | 2018-01-05 21:06 | PDOC ---
Rapid Medical Evaluation Chief Complaint: Wound Time Seen by Provider: 01/05/18 21:03 Medical Evaluation: Allergies Allergy/AdvReac Type Severity Reaction Status Date / Time No Known Allergies Allergy Verified 05/16/17 14:45 01/05/18 21:04 Pt presents to the ED for L foot bleeding. Pt has hx of diabetes. States he already has a foot wound on the bottom of the foot and now hes concerned there is a new wound where the bleeding is Exam: ambulatory with a crutch Orders: Labs, urine, IV Pt to proceed to ED for further evaluation Discharge Disposition - Diagnosis Foot pain, left - Referrals Referrals: Raiza Loco MD [Primary Care Provider] - - Patient Instructions - Post Discharge Activity
--- NOTE | 2018-01-05 21:26 | PDOC ---
Attending Attestation - Resident Resident Name: Lukas Winters - ED Attending Attestation I have performed the following: I have examined & evaluated the patient, The case was reviewed & discussed with the resident, I agree w/resident's findings & plan - Medical Decision Making 01/05/18 21:49 Pt states that he has an appt with his biomedical engineering professor tomorrow. He currently has no pain. He has some subungual bleeding. However, he has no pain,so we will not trphinate the nail. Pt's nail and nail base are intact. Area cleaned and placed in a sterile dressing. Pt will be put in a hard shoe and he will be given bactrim DS. <Staton,Rula - Last Filed: 01/05/18 21:49> - HPI HPI: 01/05/18 22:49 The patient is a 68 year old male with a significant PMH of diabetes and neuropathy who presents to the emergency department with a puncture wound since earlier today. The patient reports that he was out today and noticed that his left great toe had been bleeding when he got home. The patient states that he had surgery on his great toe 3 year ago by which he had been following up with his doctor. The patient reports that he normally cleans and dresses the wound at home. He states that last night he didnt have any symptoms or bleeding. He reports that today he noticed the his left great toenail had been black and there was blood underneath. the patient denies any obvious sensation in his foot but reports that it was probably secondary to his shoe that was tight. The patient reports that he has an appointment with his biomedical engineering professor tomorrow. He denies any other symptoms. He denies any fever, chills, nausea, vomiting, diarrhea, constipation or urinary symptoms. He denies any chest pain, shortness of breath, headache or dizziness. The patient denies any other complaints. PCP: Dr. Loco - Physicial Exam PE: 01/05/18 22:49 GENERAL: Awake, alert, and fully oriented, in no acute distress HEAD: No signs of trauma EYES: PERRLA, EOMI, sclera anicteric, conjunctiva clear ENT: Auricles normal inspection, hearing grossly normal, nares patent, oropharynx clear without exudates. Moist mucosa NECK: Normal ROM, supple, no lymphadenopathy, JVD, or masses LUNGS: Breath sounds equal, clear to auscultation bilaterally. No wheezes, and no crackles HEART: Regular rate and rhythm, normal S1 and S2, no murmurs, rubs or gallops ABDOMEN: Soft, nontender, normoactive bowel sounds. No guarding, no rebound. No masses EXTREMITIES: (+)left toenail black with blood underneath. Nail intact. No surrounding redness and cellulitis. Small 1x2cm fluid filled bleb between 1st and 2nd toe. Normal range of motion, no edema. No clubbing or cyanosis. No cords, erythema, or tenderness NEUROLOGICAL: Cranial nerves II through XII grossly intact. Normal speech, normal gait SKIN: Warm, Dry, normal turgor, no rashes or lesions noted. Documentation prepared by Zulma Maldonado, acting as senior medical technologist for Rula Staton MD. <Zulma Maldonado - Last Filed: 01/05/18 22:50>
[2018-01-05] MEDS ORDERED: SULFAMETHOXAZOLE/TRIMETHOPRIM 800MG/160MG D.S. TABLET PO ONE (21:45)
[2018-01-05] MEDS ORDERED: SULFAMETHOXAZOLE/TRIMETHOPRIM 800MG/160MG D.S. TABLET ONE (21:48)
--- NOTE | 2018-01-05 21:54 | PDOC ---
History of Present Illness - General Chief Complaint: Wound Stated Complaint: BLEEDING FROM LEFT FOOT Time Seen by Provider: 01/05/18 21:03 History Source: Patient, Spouse ( present for interview.) Exam Limitations: No Limitations - History of Present Illness Initial Comments: 68 y/o male presenting to [facility] ER via private auto complaining of bleeding around toenail of left great toe. Pt first noticed blood in his sock this evening. Denies pain to the area as he has severe diabetic neuropathy. Denies redness, streaking, or purulent discharge from the area. He has chronic diabetic foot wound to the same phalange with a h/o MRSA infection. He is s/p extensive soft tissue debridement and undergoing chronic wound care by Dr. Meng. Also follows with a airport control operator and has an appointment already scheduled for tomorrow (06 Jan 2018). Pt is on anticoagulation medication for atrial flutter. PCP: Dr. Raiza Loco Rcp: Jesu Yepez Vp Account Director: Dr. Regalado Social Hx: - Pharmacist Medical Hx: A-flutter Type 2 diabetes Hypertension Osteomyelitis Chronic foot wounds h/o MRSA Pedal edema (on demadex) Surgical Hx: Left toe debridement 2/2 MRSA Past History - Past Medical History Allergies/Adverse Reactions: Allergies Allergy/AdvReac Type Severity Reaction Status Date / Time No Known Allergies Allergy Verified 01/05/18 21:05 Home Medications: Ambulatory Orders Allopurinol [Zyloprim] 300 mg PO DAILY #0 tablet 06/14/11 Lisinopril [Prinivil -] 5 mg PO DAILY 09/11/14 Gabapentin [Neurontin] 200 mg PO HS PRN #0 09/22/14 Januvia 50 mg PO BID 10/14/14 Ascorbate Calcium [Vitamin C] 500 mg PO DAILY 05/16/17 Multivitamin [One Daily] 1 each PO DAILY 05/16/17 Zinc Sulfate 220 mg PO DAILY 05/16/17 Apixaban [Eliquis -] 5 mg PO BID #60 tablet 05/17/17 Atorvastatin Ca [Lipitor] 40 mg PO HS #30 tablet 05/17/17 Carvedilol [Coreg -] 12.5 mg PO BID 11/20/17 Potassium Chloride [K-Dur -] 40 meq PO DAILY 11/20/17 Torsemide [Demadex] 20 mg PO DAILY 11/20/17 Sulfamethoxazole/Trimethoprim [Bactrim Ds -] 1 tab PO BID #14 tablet 01/05/18 COPD: No CHF: Yes DVT: No Diabetes: Yes HTN: Yes Hypercholesterolemia: Yes - Surgical History Appendectomy: Yes Orthopedic Surgery: Yes (lt knee) - Immunization History Immunization Up to Date: Yes - Suicide/Smoking/Psychosocial Hx Smoking Status: No Smoking History: Former smoker Have you smoked in the past 12 months: No Number of Cigarettes Smoked Daily: 0 If you are a former smoker, when did you quit?: 1979 Information on smoking cessation initiated: No 'Breaking Loose' booklet given: 09/12/14 Hx Alcohol Use: No Drug/Substance Use Hx: No Substance Use Type: None Hx Substance Use Treatment: No Review of Systems - Review of Systems Able to Perform ROS?: Yes Comments:: In addition to that documented in the HPI above, the additional ROS was obtained : Constitutional: Denies fevers or chills Eyes: Denies vision changes ENMT: Denies sore throat CV: Denies chest pain Resp: Denies SOB GI: Denies vomiting or diarrhea *Physical Exam - Vital Signs Last Vital Signs Temp Pulse Resp BP Pulse Ox 98.2 F 81 18 139/71 100 01/05/18 21:03 01/05/18 21:03 01/05/18 21:03 01/05/18 21:03 01/05/18 21:03 - Physical Exam Comments: Constitutional: Well-developed, well-nourished, obese male in no acute distress or obvious discomfort. Found sitting upright on edge of hospital bed. Alert and oriented x4. Answered all questions appropriately and completely. Speech was non -labored, non-pressured. HEENT: Normocephalic. No obvious external signs of trauma. Hearing grossly normal. No nasal discharge. Neck is supple. Cardiovascular: Regular rate and regular rhythm. No murmur, rubs, clicks, or gallops. Peripheral pulses: Radial pulses full. Respiratory: Breathing unlabored. Equal chest rise and fall. Clear to auscultation bilaterally. No stridor, no wheezing, no rhonchi. Neuro: Alert and oriented. Moving all four extremities spontaneously. Skin: Warm and dry. Minimal bleeding from lateral aspect of left great toe nail with dark nail discoloration likely from bleeding underneath. Approx 1cm x 1cm fluid filled blister on lateral edge of same toe. No warmth, purulent discharge , cellulitic lesion, or lymphatic streaking appreciated. Psych: Affect: appropriate. Mood: normal. Medical Decision Making - Medical Decision Making *Reviewed vital signs, nursing notes, and prior visit documentation (if available). 68 y/o diabetic male on dabigatran complaining of toenail bleeding. H/o chronic diabetic wound with MRSA infection in the same phalange. Severe neuropathy in lower extremities. No reported systemic symptoms. Afebrile. Vitals unremarkable for hypotension or tachycardia. Low suspicion for acute infectious process. Injury is likely secondary to friction and compression from shoes given distribution. RME labs cancelled. Will prescribe Bactrim for prophylaxis for soft tissue infection with MRSA coverage. Pt has airport control operator appointment already scheduled tomorrow for follow up. Discussed physical exam findings with pt. Answered all questions. Provided return precautions. Pt expressed verbal understanding and agreement with plan to discharge home with outpatient follow up. *DC/Admit/Observation/Transfer Diagnosis at time of Disposition: Foot pain, left, Neuropathic ulcer of foot due to type 2 diabetes mellitus - Discharge Dispostion Disposition: HOME Condition at time of disposition: Stable Decision to Admit order: No - Prescriptions Prescriptions: Sulfamethoxazole/Trimethoprim [Bactrim Ds -] 1 tab PO BID #14 tablet - Referrals Referrals: Raiza Loco MD [Primary Care Provider] - Glenn Meng MD [Staff Physician] - 3 days - Patient Instructions Printed Discharge Instructions: DI for Diabetic Foot Ulcer Additional Instructions: The bleeding from your toe is likely caused by constriction and friction from your shoes. It does not appear to be infected at this time. Keep clean dressings on the wound for the next several days - until you are able to be seen by your airport control operator and/or your wound care doctor. Try wearing more loose fitting shoes. I have sent a prescription for Bactrim to your pharmacy given your history of MRSA soft tissue infection near the site. Take as directed on the package insert. Go to the nearest emergency department if your condition changes or you feel as though you need additional emergency evaluation. Print Language: KYRGYZ - Post Discharge Activity
== END 2018-01-05 22:11 | disposition home or self-care (01) ==
LOC: JER 20:31
DX: S90.212A Contusion of left great toe with damage to nail, initial encounter (principal); E11.621 Type 2 diabetes mellitus with foot ulcer; Z86.14 Personal history of Methicillin resistant Staphylococcus aureus infection; I48.92 Unspecified atrial flutter; Z79.01 Long term (current) use of anticoagulants; I10 Essential (primary) hypertension; E11.9 Type 2 diabetes mellitus without complications; Z79.84 Long term (current) use of oral hypoglycemic drugs
CPT/HCPCS: 99282-25

== ENCOUNTER 2019-01-29 10:16 | Emergency (ER) | payer OTHER, BC ==
--- NOTE | 2019-01-29 10:25 | PDOC ---
History of Present Illness - General Stated Complaint: VOMITNG,NUSEA Time Seen by Provider: 01/29/19 10:20 - History of Present Illness Initial Comments: 01/29/19 10:57 HPI: 69 y/o M with hx of Aflutter on eliquis, DM, HTN, osteomyelitis of left foot with chronic foot wound now currently healed presenting with pre-syncopal symptoms. He states he woke up in the middle of the night and felt dizzy but wasnt sure if he was sure if he was just groggy from sleeping so went back to sleep. He woke up around 9am and when he went to the bathroom, he felt his dizziness persist. Describes room spinning sensation and that he is going to pass out. He denies LOC, falls, or trauma. He also reports 1 episode of NBNB emesis without nausea. He denies LEE, fever, chills, chest pain, SOB, palpitations, diaphoresis, abd pain, dysuria, hematuria, BPR. at bedside says patient appears pale and denies slurred speech or facial droop PMHx: as noted above ROS: as noted SHx: Denies tobacco use; no alcohol use; no rec drugs Allergies: NKDA ROS: GENERAL/CONSTITUTIONAL: No fever or chills. No weakness. HEAD, EYES, EARS, NOSE AND THROAT: No change in vision. No ear pain or discharge. No sore throat. CARDIOVASCULAR: No chest pain or shortness of breath RESPIRATORY: No cough, wheezing, or hemoptysis. GASTROINTESTINAL: +vomiting; no, diarrhea or constipation. GENITOURINARY: No dysuria, frequency, or change in urination. MUSCULOSKELETAL: No joint or muscle swelling or pain. No neck or back pain. SKIN: No rash NEUROLOGIC: No headache, vertigo, loss of consciousness, or change in strength/ sensation. ENDOCRINE: No increased thirst. No abnormal weight change HEMATOLOGIC/LYMPHATIC: No anemia, easy bleeding, or history of blood clots. ALLERGIC/IMMUNOLOGIC: No hives or skin allergy. PE: GENERAL: Awake, alert, and fully oriented, no acute distress HEAD: No signs of trauma, normocephalic, atraumatic EYES: EOMI, sclera anicteric, conjunctiva clear, right horizontal nystagmus in right eye ENT: Auricles normal inspection, hearing grossly normal, nares patent, oropharynx clear without exudates. Moist mucosa NECK: Normal ROM, no lymphadenopathy LUNGS: No increased work of breathing, symmetrical chest rise, clear to auscultation bilaterally, no wheezes, crackles or rhonchi HEART: Regular rate and rhythm, normal S1 and S2, no murmurs, peripheral pulses 2+ and equal bilaterally. ABDOMEN: Soft, nondistended, nontender, normoactive bowel sounds. No guarding, no rebound. No masses. No CVAT EXTREMITIES: Normal inspection, Normal range of motion, no edema. No clubbing or cyanosis. NEUROLOGICAL: Cranial nerves II through XII grossly intact. Normal speech, normal gait, no focal sensorimotor deficits. No FTN ataxia or HTS ataxia SKIN: Warm, Dry, normal turgor, no rashes or lesions noted tPA Exclusion checklist 3-4.5h - Time Elapsed Date last known well: 01/28/19 Time last known well: 21:00 Elaspsed time: Day(s) and 17 Hour(s) and 46 Minutes - Thrombolytic Therapy Candidate Is patient eligible for thrombolytic therapy: No - Exclusion Criteria 3-4.5 hr SBP greater than 185 or DBP greater than 110mmHg despite tx: No Recent IC/spinal surgery,head trauma or stroke<3mos.: No Hx IC hemorrhage, IC neoplasm, AV malformation or aneurysm: No Active internal bleeding: No Blding diathesis(low plt ct, inc PTT,INR>1.7 or use of NOAC): No Symptoms suggest subarachnoid hemorrhage: No CT demonstrates multilobar infarct(>1/3 cerebral hemiphere): No - Add'l Relative Exclusion 3-4.5 hr Hx of both diabetes AND prior ischemic stroke: No Taking an oral anticoagulant regardless of INR: Yes NIHSS >25: No - Ineligibility reason(s) Reasons No tPA given: Outside of window - delayed arrival NIH Stroke Scale - Last Known Well Date/Time & Onset Date Last Known Well: 01/28/19 Time Last Known Well: 21:00 - Initial Evaluation Level of consciousness: Alert Ask patient the month and their age: Answers both correctly Ask patient to open & close eyes; make fist and let go: Obeys both correctly Best gaze (horizontal eye movement): Partial gaze palsy Visual field testing: No visual field loss Facial paresis (Show teeth/raise eyebrows/close eyes tight): Normal symmetrical movement Motor Function: Left Arm: Normal Motor Function: Right Arm: Normal (extends arm 90 (or 45) degrees for 10 seconds without drift Motor Function: Left Leg: Normal (extends leg 30 degrees for 5 seconds without drift) Motor Function: Right Leg: Normal (extends leg 30 degrees for 5 seconds without drift) Limb Ataxia: No ataxia Sensory(Use pinprick test arms,legs,trunk,face/side to side): Normal Best language (Describe picture, name items, read sentences): No Aphasia Dysarthria (read several words): Normal articulation Extinction and Inattention: No abnormality - Total Score NIH Stroke Scale Score: 1 Past History - Past Medical History Allergies/Adverse Reactions: Allergies Allergy/AdvReac Type Severity Reaction Status Date / Time No Known Allergies Allergy Verified 01/29/19 10:25 Home Medications: Ambulatory Orders Allopurinol [Zyloprim] 300 mg PO DAILY #0 tablet 06/14/11 Lisinopril [Prinivil -] 5 mg PO DAILY 09/11/14 Gabapentin [Neurontin] 200 mg PO HS PRN #0 09/22/14 Januvia 100 mg PO DAILY 10/14/14 Ascorbate Calcium [Vitamin C] 500 mg PO DAILY 05/16/17 Multivitamin [One Daily] 1 each PO DAILY 05/16/17 Zinc Sulfate 220 mg PO DAILY 05/16/17 Atorvastatin Ca [Lipitor] 40 mg PO HS #30 tablet 05/17/17 Carvedilol [Coreg -] 12.5 mg PO BID 11/20/17 Potassium Chloride [K-Dur -] 40 meq PO DAILY 11/20/17 Torsemide [Demadex] 20 mg PO DAILY 11/20/17 Vitamin D3 50,000 iu PO WEEKLY 01/10/18 Apixaban [Eliquis -] 5 mg PO BID 12/26/18 Diazepam [Valium] 2 mg PO DAILY #4 tablet MDD 2 01/29/19 Meclizine HCl [Antivert -] 25 mg PO BID #10 tablet 01/29/19 Ondansetron [Zofran *Odt*] 4 mg SL TID #15 od.tablet 01/29/19 Cardiac Disorders: Yes (Atrial flutter/Eliquis) COPD: No CHF: Yes DVT: No Diabetes: Yes HTN: Yes Hypercholesterolemia: Yes - Surgical History Appendectomy: Yes Orthopedic Surgery: Yes (lt knee) - Immunization History Immunization Up to Date: Yes - Psycho Social/Smoking Cessation Hx Smoking Status: No Smoking History: Former smoker Have you smoked in the past 12 months: No Number of Cigarettes Smoked Daily: 0 If you are a former smoker, when did you quit?: 1979 'Breaking Loose' booklet given: 09/12/14 Hx Alcohol Use: No Drug/Substance Use Hx: No Substance Use Type: None Hx Substance Use Treatment: No ED Treatment Course - LABORATORY CBC & Chemistry Diagram: 01/29/19 10:55 01/29/19 10:55 Medical Decision Making - Medical Decision Making 01/29/19 11:49 69 y/o M with hx of Aflutter on eliquis, DM, HTN, osteomyelitis of left foot with chronic foot wound now currently healed presenting with pre-syncopal symptoms as well as vertigo and emesis. BP 168/82 HT 59. PE grossly unremarkable -CVA order set -meclizine 01/29/19 13:46 MRI brain 01/29/19 13:46 CT head and MRI brain negative for acute pathology labs unremarkable ekg: nsr, lad, unchanged from previous ekg patient reported persistent positional vertigo when lying down and getting up from CT/MRI; administered 500cc bolus, reglan, valium 2mg po will reassess 01/29/19 14:40 patient tolerated diet and ambulatory with crutch assist (which is baseline for him given foot wounds). Is comfortable with DC home with pcp and ent followup Discharge - Discharge Information Problems reviewed: Yes Clinical Impression/Diagnosis: Dizziness Condition: Improved Disposition: HOME - Additional Discharge Information Prescriptions: Diazepam [Valium] 2 mg PO DAILY #4 tablet MDD 2 Meclizine HCl [Antivert -] 25 mg PO BID #10 tablet Ondansetron [Zofran *Odt*] 4 mg SL TID #15 od.tablet - Follow up/Referral Referrals: Raiza Loco MD [Primary Care Provider] - Gera Ayala MD [Staff Physician] - - Patient Discharge Instructions Patient Printed Discharge Instructions: DI for Vertigo, DI for Benign Paroxysmal Positional Vertigo Additional Instructions: Additional Instructions: Please return to the emergency department with any new or worsening symptoms or concerns including severe headache, fainting, fevers. Please follow up with your primary care physician within 72 hours for re- evaluation. Please also followup with ENT if symptoms persist We have sent medications to your pharmacy to assist with nausea/vomiting and dizziness. Please ensure adequate hydration. You may take meclizine 50mg twice a day for 2-3 days. If you feel minimal improvement, you may supplement with valium 2mg once daily. You may take zofran every 8hours as needed for nausea/ vomiting. - Post Discharge Activity
[2019-01-29 10:40] VITALS: TEMP 97.4; BMI 32.1
[2019-01-29] MEDS ORDERED: MECLIZINE HCL 25 MG TABLET (FP) PO ONE ×2 (10:54→14:46)
[2019-01-29] MEDS ORDERED: MECLIZINE HCL 25 MG TABLET (FP) ONE ×2 (11:00→14:47)
--- NOTE | 2019-01-29 11:22 | PDOC ---
Attending Attestation - Resident Resident Name: Calixto Bolton - ED Attending Attestation I have performed the following: I have examined & evaluated the patient, The case was reviewed & discussed with the resident, I agree w/resident's findings & plan - HPI HPI: 01/29/19 11:17 69-year-old male with history of hypertension, diabetes, paroxysmal atrial fibrillation and CAD presents with intermittent vertigo since last night. Patient initially felt symptoms during the night while in bed, described as vertigo worsened with standing or walking and slightly relieved with rest, but with a persistent sense of lightheadedness even at rest. Mild gradual onset headache, no vision change or loss, no speech change, no focal deficit, no ataxia noted. Intermittent vertigo persisted with a more severe episode this morning upon turning his head resulting in vomiting, prompting the ED visit. No history of vertigo episodes in the past. No recent URI. - Physicial Exam PE: 01/29/19 11:18 Vitals as noted, blood pressure 168 systolic Seated comfortably in stretcher speaking full sentences Head is atraumatic, TMs are clear, no audible carotid bruit, neck is supple Pupils equal round reactive to light, extraocular movements intact, visual meredith intact Heart is regular to auscultation, lungs are clear, abdomen benign NEURO: Mental status: The patient is alert and oriented x3. Cranial nerves: Subtle flattening of R nasolabial fol, otherwise Cranial nerves intact Motor: The upper extremities are 5 over 5 in all muscle groups. The lower extremities are 5 over 5 in all muscle groups. No pronator drift. Sensation: Sensation is intact to light touch throughout. Cerebellar: Pgavdx-xsgege-cbyb is normal in both upper extremities. Heel-knee- brower is normal in both lower extremities. Vertigo reproducible with javier-hallpike Reflexes: 2+ and symmetric in the upper and lower extremities. Gait: Normal. Heel and toe walking are normal. Tandem gait is normal. - Medical Decision Making 01/29/19 11:22 69y/o M with several TIA/CVA risk factors p/w vertigo that began last night. There is a positional component, suggesting peripheral etiology, but has several risk factors for TIA/CVA (htn, dm, afib). neuro intact here with positional sxs persisting, BP slightly elevated. stroke protocol initiated EKG in sinus trial of meclizine will obtain rapid MRI stroke protocol to assess for infarct. If negative and sxs improve, potential for discharge with outpt workup. 01/29/19 14:27 labs, ct/mri without acute abnormality. remains neuro intact with improved sxs, ambulating steadily. still some residual vertigo with bending down/standing. trial of valium, then can d/c to ent f/u with return precautions. Heart Score/ECG Review #1 ECG reviewed & interpreted by me at: 10:49 General ECG Interpretation: Sinus Rhythm, Normal Rate (62), Normal Intervals ( qtc 470, left axis deviation), No acute ischemic changes NIH Stroke Scale - Last Known Well Date/Time & Onset Date Last Known Well: 01/28/19 Time Last Known Well: 21:30 - Initial Evaluation Level of consciousness: Alert Ask patient the month and their age: Answers both correctly Ask patient to open & close eyes; make fist and let go: Obeys both correctly Best gaze (horizontal eye movement): Normal Visual field testing: No visual field loss Facial paresis (Show teeth/raise eyebrows/close eyes tight): Minor paralysis ( flattened nasolabial fold, asymmetry on smiling) Motor Function: Left Arm: Normal Motor Function: Right Arm: Normal (extends arm 90 (or 45) degrees for 10 seconds without drift Motor Function: Left Leg: Normal (extends leg 30 degrees for 5 seconds without drift) Motor Function: Right Leg: Normal (extends leg 30 degrees for 5 seconds without drift) Limb Ataxia: No ataxia Sensory(Use pinprick test arms,legs,trunk,face/side to side): Normal Best language (Describe picture, name items, read sentences): No Aphasia Dysarthria (read several words): Normal articulation Extinction and Inattention: No abnormality - Total Score NIH Stroke Scale Score: 1
[2019-01-29 11:26] LABS: BASO % 0.8 % (0-2.0); HEMATOCRIT 37.9 % (35.4-49); HEMOGLOBIN 12.9 GM/dL (11.7-16.9); LYMPH % 9.6 % (8-40); MCH 31.3 pg (25.7-33.7); MCHC 34.2 g/dl (32.0-35.9); MEAN CELL VOLUME 91.7 fl (80-96); MEAN PLT VOLUME 8.3 fl (7.5-11.1); MONO % 3.4 % (3.8-10.2); NEUT % 84.2 % (42.8-82.8); PLATELET COUNT 197 K/MM3 (134-434); RBC 4.13 M/mm3 (4.00-5.60); RDW 14.7 % (11.9-15.9); WHITE BLOOD COUNT 9.5 K/mm3 (4.0-10.0)
[2019-01-29 11:41] LABS: CHOLESTEROL 148 mg/dL (50-200)
[2019-01-29 12:04] LABS: INR 1.03 (0.83-1.09); PROTHROMBIN TIME (PATIENT) 12.1 SEC (9.7-13.0)
[2019-01-29 12:07] LABS: ACTIVATED PTT 30.8 SECONDS (25.2-36.5)
[2019-01-29 12:32] LABS: ALK PHOS 95 U/L (45-117); ANION GAP 10 MMOL/L (8-16); BILIRUBIN,TOTAL 0.8 mg/dL (0.2-1); BLOOD UREA NITROGEN 31.6 mg/dL (7-18); CALCIUM 8.7 mg/dL (8.5-10.1); CHLORIDE 104 mmol/L (98-107); CO2 25 mmol/L (21-32); CREATININE 1.3 mg/dL (0.55-1.3); GLUCOSE,RANDOM 221 mg/dL (74-106); HDL CHOLESTEROL 42 mg/dL (40-60); LDL CHOLESTEROL (ONLY SJRH) 80 mg/dL (5-100); POTASSIUM 4.2 mmol/L (3.5-5.1); SGOT/AST 17 U/L (15-37); SGPT/ALT 32 U/L (13-61); SODIUM 139 mmol/L (136-145); TOT PROT 6.6 g/dl (6.4-8.2); TRIGLYCERIDES 149 mg/dL (0-150)
[2019-01-29 13:10] VITALS: BP 149/77; PULSE 63
[2019-01-29] MEDS ORDERED: SODIUM CHLORIDE 500 ML IV STA (13:27)
[2019-01-29] MEDS ORDERED: METOCLOPRAMIDE HCL INJECTION 10 MG/2 ML VIAL IVPUSH ONE (13:27)
[2019-01-29] MEDS ORDERED: diazePAM 2 MG TABLET PO ONE (13:27)
[2019-01-29] MEDS ORDERED: METOCLOPRAMIDE HCL INJECTION 10 MG/2 ML VIAL ONE (13:32)
[2019-01-29] MEDS ORDERED: diazePAM 2 MG TABLET ONE (13:32)
--- NOTE | 2019-01-30 10:40 | EKG ---
Test Reason : Blood Pressure : / mmHG Vent. Rate : 062 BPM Atrial Rate : 062 BPM P-R Int : 170 ms QRS Dur : 104 ms QT Int : 464 ms P-R-T Axes : 051 -38 006 degrees QTc Int : 470 ms POOR DATA QUALITY, INTERPRETATION MAY BE ADVERSELY AFFECTED NORMAL SINUS RHYTHM LEFT AXIS DEVIATION SEPTAL INFARCT , AGE UNDETERMINED ABNORMAL ECG WHEN COMPARED WITH ECG OF 17-MAY-2017 09:24, SEPTAL INFARCT IS NOW PRESENT QT HAS SHORTENED Confirmed by JOSE MENDEZ, JAE ([id number]) on 01/30/2019 10:40:38 AM Referred By: Confirmed By:JAE GARCIA MD
== END 2019-01-29 15:17 | disposition home or self-care (01) ==
LOC: JER 10:16
PROC: 3E033GC Introduction of Other Therapeutic Substance into Peripheral Vein, Percutaneous Approach (ICD-10-PCS; principal; 2019-01-29)
DX: R42 Dizziness and giddiness (principal); I48.92 Unspecified atrial flutter; Z79.01 Long term (current) use of anticoagulants; E11.9 Type 2 diabetes mellitus without complications; I10 Essential (primary) hypertension; M86.9 Osteomyelitis, unspecified; Z87.891 Personal history of nicotine dependence; E78.00 Pure hypercholesterolemia, unspecified; I50.9 Heart failure, unspecified
CPT/HCPCS: 36415; 70450-TC; 70551-TC; 71045-TC-FY; 80053; 82465; 82550; 83718; 83721; 84478; 84484; 85025; 85610; 85730; 93005; 93010; 96374; 99284-25; J7030